=== PATIENT | female | born 1985 | race Two or more races ===

== ENCOUNTER 2021-08-20 14:27 | Inpatient (IN) | payer BC ==
[2021-08-20] MEDS ORDERED: Misoprostol 200 MCG Tab PO PRN (14:29)
[2021-08-20] MEDS ORDERED: Butorphanol 1 MG/ML SDV IVPUSH PRN (14:29)
[2021-08-20] MEDS ORDERED: Sodium Chloride 0.9% 10 ML Syringe FLUSH PRN (14:29)
[2021-08-20] MEDS ORDERED: Tranexamic Acid 1,000 MG in Sodium Chloride 0.9% 100 ML IV PRN (14:29)
[2021-08-20] MEDS ORDERED: Lidocaine 1% 50 ML MDV INJECT PRN (14:29)
[2021-08-20] MEDS ORDERED: Nalbuphine 10 MG/1 ML Vial IVPUSH PRN (14:29)
[2021-08-20] MEDS ORDERED: Sodium Chloride 0.9% 20 ML SDV IV PRN (14:29)
[2021-08-20] MEDS ORDERED: Carboprost Tromethamine 250 MCG/1 ML Amp IM PRN (14:29)
[2021-08-20] MEDS ORDERED: Sodium Chloride 0.9% 2.5 ML Syringe FLUSH PRN (14:29)
[2021-08-20] MEDS ORDERED: Water For Irrigation,Sterile 1,000 ML Container IRR PRN (14:29)
[2021-08-20] MEDS ORDERED: Methylergonovine 0.2 MG/1 ML Amp IM PRN (14:29)
[2021-08-20] MEDS ORDERED: Lactated Ringers 1,000 ML IV SCH (14:30)
[2021-08-20] MEDS ORDERED: Oxytocin/0.9 % Sodium Chloride 30 UNIT/500 ML BAG IV SCH (14:30)
[2021-08-20] MEDS ORDERED: Lidocaine 1% 50 ML MDV ONE (15:04)
[2021-08-20] MEDS ORDERED: Bisacodyl 10 MG Supp RECTAL PRN (16:04)
[2021-08-20] MEDS ORDERED: Acetaminophen 500 MG Tab PO PRN ×2 (16:04)
[2021-08-20] MEDS ORDERED: Benzocaine/Menthol 20%-0.5% Spray 78 GM Cannister TOP PRN (16:04)
[2021-08-20] MEDS ORDERED: Ibuprofen 400 MG Tab PO PRN (16:04)
[2021-08-20] MEDS ORDERED: oxyCODONE 5 MG Tab PO PRN (16:04)
[2021-08-20] MEDS ORDERED: Lanolin 100% Cream 7 GM Tube TOP PRN (16:04)
[2021-08-20] MEDS ORDERED: Witch Hazel Medicated Pads 40/Jar TOP PRN (16:04)
--- NOTE | 2021-08-20 16:10 | PCM.DEL ---
L & D Note - General Info Date of Service: 08/20/21 - Delivery Note Labor: Spontaneous Delivery Outcome: Livebirth Presentation: Right Occiput Anterior (KYLEE) Nuchal Cord: None Anesthesia Type: Local Anesthetic: Lidocaine (Xylocaine) 1% Plain Local Anesthetic Volume: 5cc Amniotic Fluid Description: Clear Episiotomy Type: None Laceration: 1st Degree Suture type: Vicryl Suture size: 3-0 Placenta: Intact, Spontaneous Cord: 3 Vessels Resuscitation Needed: No Provider: Kevin Rodriguez Score 1 min: 8 Score 5 min: 9 Second Stage Interventions: Reports: Pushing Effectively, Pushing, McRobert's Position - General Info Date of Service: 08/20/21 - Patient Data Weight - Most Recent: 199 lb Lab Results Last 24 Hours: Laboratory Results - last 24 hr 08/20/21 Range/Units 14:40 Blood Type A POSITIVE Antibody Screen NEGATIVE Med Orders - Current: Current Medications Sodium Chloride (Sodium Chloride 0.9% 10 Ml Syringe) 10 ml FLUSH ASDIRECTED PRN PRN Reason: Keep Vein Open Sodium Chloride (Sodium Chloride 0.9% 2.5 Ml Syringe) 2.5 ml FLUSH ASDIRECTED PRN PRN Reason: Keep Vein Open Sodium Chloride (Sodium Chloride 0.9% 20 Ml Sdv) 10 ml IV ASDIRECTED PRN PRN Reason: IV Use Discontinued Medications Butorphanol Tartrate (Butorphanol 1 Mg/Ml Sdv) 1 mg IVPUSH Q1H PRN PRN Reason: Pain (severe 7-10) Carboprost Tromethamine (Carboprost Tromethamine 250 Mcg/1 Ml Amp) 250 mcg IM ASDIRECTED PRN PRN Reason: Post Hemorrhage Oxytocin/Sodium Chloride (Oxytocin 30 Unit In Ns 0.9% 500 Ml Premix) 30 unit in 500 mls @ 500 mls/hr IV TITRATE [facility] Last Admin: 08/20/21 15:42 Dose: 500 mls/hr Documented by: Tranexamic Acid 1,000 mg/ (Sodium Chloride) 110 mls @ 660 mls/hr IV ONETIME PRN PRN Reason: Bleeding Lactated Ringer's (Ringers, Lactated) 1,000 mls @ 150 mls/hr IV ASDIRECTED [facility] Last Admin: 08/20/21 14:35 Dose: 150 mls/hr Documented by: Lidocaine HCl (Lidocaine 1% 50 Ml Mdv) 50 ml INJECT ONETIME PRN PRN Reason: Laceration repair Lidocaine HCl (Lidocaine 1% 50 Ml Mdv) Confirm Administered Dose 50 ml .ROUTE .[facility]-MED ONE Stop: 08/20/21 15:05 Methylergonovine Maleate (Methylergonovine 0.2 Mg/1 Ml Amp) 0.2 mg IM ASDIRECTED PRN PRN Reason: Post Hemorrhage Misoprostol (Misoprostol 200 Mcg Tab) 200 mcg PO ONETIME PRN PRN Reason: Post Hemorrhage Nalbuphine HCl (Nalbuphine 10 Mg/1 Ml Vial) 10 mg IVPUSH Q1H PRN PRN Reason: Pain (severe 7-10) Sterile Water (Water For Irrigation,Sterile 1,000 Ml Container) 1,000 ml IRR ASDIRECTED PRN PRN Reason: delivery - Problem List Review Problem List Initiated/Reviewed/Updated: Yes - My Orders Last 24 Hours: My Active Orders 08/20/21 CBC W/O DIFF,HEMOGRAM [HEME] Routine 08/20/21 14:29 Sodium Chloride 0.9% [Normal Saline] 10 ml IV ASDIRECTED PRN Sodium Chloride 0.9% [Saline Flush] 10 ml FLUSH ASDIRECTED PRN Sodium Chloride 0.9% [Saline Flush] 2.5 ml FLUSH ASDIRECTED PRN Peripheral IV Insertion Adult [OM.PC] Routine Resuscitation Status Routine 08/20/21 14:40 CORONAVIRUS COVID-19 LEONOR [MOLEC] Routine RPR (SYPHILIS SERO) W/ RFLX [REF] Routine 08/20/21 Dinner Regular Diet [DIET] 08/20/21 16:04 Patient Status [ADT] Routine May Shower [RC] ASDIRECTED Up ad Lynda [RC] ASDIRECTED Vital Signs [RC] PER UNIT ROUTINE Acetaminophen [Tylenol Extra Strength] 1,000 mg PO Q4H PRN Acetaminophen [Tylenol Extra Strength] 500 mg PO Q4H PRN Benzocaine/Menthol [Dermoplast Pain Relief 20%-0.5% [place]] 78 gm TOP ASDIRECTED PRN Docusate Sodium [Colace] 100 mg PO Q12H PRN Ibuprofen [Motrin] 400 mg PO Q4H PRN Ibuprofen [Motrin] 800 mg PO Q6H PRN Lanolin [Lansinoh HPA] See Dose Instructions TOP ASDIRECTED PRN bisacodyL [Dulcolax] 10 mg RECTAL ONETIME PRN oxyCODONE 5 mg PO Q2H PRN witch Venkat [Tucks] 1 pad TOP ASDIRECTED PRN Assess Lochia [WOMSER] Per Unit Routine Assess Uterine Involution [WOMSER] Per Unit Routine Breast Pump [WOMSER] Per Unit Routine Peripheral IV Discontinue [OM.PC] Routine 08/20/21 16:05 Ice Therapy [OM.PC] Per Unit Routine Perineal Care [OM.PC] Per Unit Routine Sitz Bath [OM.PC] Per Unit Routine 08/20/21 16:06 Cooling Warming Measures [RC] ASDIRECTED 08/21/21 05:11 HEMOGLOBIN/HEMATOCRIT,HH [HEME] Timed - Assessment Assessment:: 36yo PPD 0 s/p uncomplicated . - Plan Plan:: Routine care
[2021-08-20] MEDS: Docusate Sodium 100 MG Cap PO PRN (20:32)
[2021-08-20] MEDS: Ibuprofen 800 MG Tab PO PRN (20:32)
--- NOTE | 2021-08-21 01:38 | OR ---
SURGEON: Kevin Rodriguez MD DATE OF PROCEDURE: 08/20/2021 INDICATION FOR PROCEDURE: A 36-year-old, G1, P0, at 39 weeks and 6 days, presenting with spontaneous labor. Patient reports she had contractions starting from last night that became increasingly stronger earlier today. She denies any loss of fluid or vaginal bleeding. was complicated by advanced maternal age, which she was evaluated with serial growth ultrasounds, which was normal. She had weekly testing at term. She was GBS negative. After she presented to Labor and Delivery, she was found to be 8 cm dilated and +2 station. The patient declined an epidural for pain. The heart rate was category 1. She quickly became fully dilated within the next 30 minutes with the urge to push. PREOPERATIVE DIAGNOSES: 1. Gardner intrauterine at 39 weeks and 6 days. 2. Active labor. POSTOPERATIVE DIAGNOSES: 1. Gardner intrauterine at 39 weeks and 6 days. 2. Active labor. PROCEDURE PERFORMED: Normal spontaneous vaginal delivery, repair of first-degree laceration. ANESTHESIA: Local anesthesia. FINDINGS: Viable male , score of 8 and 9, weight of 6 pounds 13 ounces. ESTIMATED BLOOD LOSS: 200 mL. DESCRIPTION OF PROCEDURE: The patient pushed with contractions for about 30 minutes with good descent. head delivered in occiput anterior position over intact perineum, restituted ROT. Anterior shoulder was delivered easily, posterior shoulder and remaining body. No nuchal cord was noted. The baby was placed on maternal chest and evaluated by awaiting nursery staff. The baby was pink, crying, and moving all extremities immediately after delivery. The umbilical cord was clamped and cut after 3 minutes and no longer pulsating. Umbilical cord gases were obtained and the placenta was removed with gentle traction on the umbilical cord and fundal massage. The perineum was examined, and she had a first-degree laceration that was bleeding. 5 mL of 1% lidocaine with epi was injected for local anesthesia. 3-0 Vicryl was used to repair the laceration in normal fashion. Hemostasis was confirmed. Fundus was massaged, which was firm and below the umbilicus, and the bleeding was light. The patient tolerated the procedure well, was given instructions. MAGGIE / ALISA /[id number] EITAN
[2021-08-21] MEDS: Ibuprofen 800 MG Tab PO PRN ×2 (08:25→20:15)
--- NOTE | 2021-08-21 09:21 | PCM.PNPP ---
- General Info Date of Service: 08/21/21 Subjective Update: Patient without complaints. Bottle feeding going well. Pain and lochia minimal. Functional Status: Reports: Pain Controlled, Tolerating Diet, Ambulating, Urinating - Review of Systems General: Reports: No Symptoms HEENT: Reports: No Symptoms Pulmonary: Reports: No Symptoms Cardiovascular: Reports: No Symptoms Gastrointestinal: Reports: No Symptoms Genitourinary: Reports: No Symptoms Musculoskeletal: Reports: No Symptoms Skin: Reports: No Symptoms Neurological: Reports: No Symptoms Psychiatric: Reports: No Symptoms - Patient Data Vital Signs - Most Recent: Last Vital Signs Temp 36.3 C 08/21/21 08:00 Pulse 78 08/21/21 08:00 Resp 18 08/21/21 08:00 BP 119/65 08/21/21 08:00 Pulse Ox 97 08/21/21 08:00 Weight - Most Recent: 90.265 kg Lab Results - Last 24 Hours: Laboratory Results - last 24 hr 08/20/21 08/20/21 08/20/21 Range/Units 14:40 14:40 18:36 WBC 24.92 H (4.0-11.0) K/uL RBC 3.96 L (4.30-5.90) M/uL Hgb 12.2 (12.0-16.0) g/dL Hct 35.4 L (36.0-46.0) % MCV 89.4 (80.0-98.0) fL MCH 30.8 (27.0-32.0) pg MCHC 34.5 (31.0-37.0) g/dL RDW Std Deviation 44.6 (28.0-62.0) fl RDW Coeff of Alejandro 14 (11.0-15.0) % Plt Count 266 (150-400) K/uL MPV 11.60 (7.40-12.00) fL Nucleated RBC % 0.0 /100WBC Nucleated RBCs # 0 K/uL SARS-CoV-2 RNA (LEONOR) NEGATIVE (NEGATIVE) Blood Type A POSITIVE Antibody Screen NEGATIVE 08/21/21 Range/Units 05:45 WBC (4.0-11.0) K/uL RBC (4.30-5.90) M/uL Hgb 11.3 L (12.0-16.0) g/dL Hct 33.8 L (36.0-46.0) % MCV (80.0-98.0) fL MCH (27.0-32.0) pg MCHC (31.0-37.0) g/dL RDW Std Deviation (28.0-62.0) fl RDW Coeff of Alejandro (11.0-15.0) % Plt Count (150-400) K/uL MPV (7.40-12.00) fL Nucleated RBC % /100WBC Nucleated RBCs # K/uL SARS-CoV-2 RNA (LEONOR) (NEGATIVE) Blood Type Antibody Screen Med Orders - Current: Current Medications Acetaminophen (Acetaminophen 500 Mg Tab) 500 mg PO Q4H PRN PRN Reason: Pain (mild 1-3) Acetaminophen (Acetaminophen 500 Mg Tab) 1,000 mg PO Q4H PRN PRN Reason: Pain (mild 1-3) Benzocaine/Menthol (Benzocaine/Menthol 20%-0.5% [place] 78 Gm Cannister) 78 gm TOP ASDIRECTED PRN PRN Reason: Perineal Comfort Measure Last Admin: 08/20/21 20:33 Dose: 1 can Documented by: Bisacodyl (Bisacodyl 10 Mg Supp) 10 mg RECTAL ONETIME PRN PRN Reason: Constipation Docusate Sodium (Docusate Sodium 100 Mg Cap) 100 mg PO Q12H PRN PRN Reason: Constipation Last Admin: 08/20/21 20:32 Dose: 100 mg Documented by: Emollient Ointment (Lanolin 100% Cream 7 Gm Tube) 0 gm TOP ASDIRECTED PRN PRN Reason: Sore Nipples Ibuprofen (Ibuprofen 400 Mg Tab) 400 mg PO Q4H PRN PRN Reason: Pain (mild 1-3) Ibuprofen (Ibuprofen 800 Mg Tab) 800 mg PO Q6H PRN PRN Reason: Cramping Last Admin: 08/21/21 08:25 Dose: 800 mg Documented by: Oxycodone HCl (Oxycodone 5 Mg Tab) 5 mg PO Q2H PRN PRN Reason: Pain (severe 7-10) Sodium Chloride (Sodium Chloride 0.9% 10 Ml Syringe) 10 ml FLUSH ASDIRECTED PRN PRN Reason: Keep Vein Open Sodium Chloride (Sodium Chloride 0.9% 2.5 Ml Syringe) 2.5 ml FLUSH ASDIRECTED PRN PRN Reason: Keep Vein Open Sodium Chloride (Sodium Chloride 0.9% 20 Ml Sdv) 10 ml IV ASDIRECTED PRN PRN Reason: IV Use Witch Leana (Witch Leana Medicated Pads 40/Jar) 1 pad TOP ASDIRECTED PRN PRN Reason: comfort care Last Admin: 08/20/21 20:33 Dose: 1 tub Documented by: Discontinued Medications Butorphanol Tartrate (Butorphanol 1 Mg/Ml Sdv) 1 mg IVPUSH Q1H PRN PRN Reason: Pain (severe 7-10) Carboprost Tromethamine (Carboprost Tromethamine 250 Mcg/1 Ml Amp) 250 mcg IM ASDIRECTED PRN PRN Reason: Post Hemorrhage Oxytocin/Sodium Chloride (Oxytocin 30 Unit In Ns 0.9% 500 Ml Premix) 30 unit in 500 mls @ 500 mls/hr IV TITRATE [facility] Last Admin: 08/20/21 15:42 Dose: 500 mls/hr Documented by: Tranexamic Acid 1,000 mg/ (Sodium Chloride) 110 mls @ 660 mls/hr IV ONETIME PRN PRN Reason: Bleeding Lactated Ringer's (Ringers, Lactated) 1,000 mls @ 150 mls/hr IV ASDIRECTED [facility] Last Admin: 08/20/21 14:35 Dose: 150 mls/hr Documented by: Lidocaine HCl (Lidocaine 1% 50 Ml Mdv) 50 ml INJECT ONETIME PRN PRN Reason: Laceration repair Lidocaine HCl (Lidocaine 1% 50 Ml Mdv) Confirm Administered Dose 50 ml .ROUTE .[facility]-MED ONE Stop: 08/20/21 15:05 Methylergonovine Maleate (Methylergonovine 0.2 Mg/1 Ml Amp) 0.2 mg IM ASDIRECTED PRN PRN Reason: Post Hemorrhage Misoprostol (Misoprostol 200 Mcg Tab) 200 mcg PO ONETIME PRN PRN Reason: Post Hemorrhage Nalbuphine HCl (Nalbuphine 10 Mg/1 Ml Vial) 10 mg IVPUSH Q1H PRN PRN Reason: Pain (severe 7-10) Sterile Water (Water For Irrigation,Sterile 1,000 Ml Container) 1,000 ml IRR ASDIRECTED PRN PRN Reason: delivery - Interaction Disposition, : in Room with Family Feeding: Bottle Fed - Recovery Exam Fundal Tone: Firm Fundal Level: 1 Fingerbreadths Below Umbilicus Fundal Placement: Midline Lochia Amount: Scant, Small Lochia Color: Rubra/Red Other Perinuem Description: 1st degree laceration Bladder Status: Voiding Urinary Elimination: Voided - Exam General: Alert, Oriented Neck: Supple Lungs: Normal Respiratory Effort GI/Abdominal Exam: Soft, Non-Tender, No Distention Extremities: Non-Tender, No Pedal Edema Skin: Warm, Dry, Intact Neurological: No New Focal Deficit Psy/Mental Status: Alert, Normal Affect, Normal Mood - Problem List & Annotations (1) Vaginal delivery SNOMED Code(s): 404154219 Code(s): O80 - ENCOUNTER FOR FULL-TERM UNCOMPLICATED DELIVERY Status: Acute Current Visit: Yes - Problem List Review Problem List Initiated/Reviewed/Updated: Yes - My Orders Last 24 Hours: My Active Orders 08/21/21 09:19 Ready for Discharge [RC] PER UNIT ROUTINE - Assessment Assessment:: 36yo PPD 1 s/p uncomplicated . - Plan Plan:: Continue routine care. Plan for discharge home today if infant cleared by Director Card. Reviewed discharge instructions/precautions. All questions answered. Rh positive, GBS negative.
[2021-08-21] MEDS: Docusate Sodium 100 MG Cap PO PRN (20:15)
--- NOTE | 2021-08-22 07:17 | PCM.PNPP ---
- General Info Date of Service: 08/22/21 Subjective Update: Patient without complaints this morning. Bottle feeding going well. Pain and lochia minimal. Functional Status: Reports: Pain Controlled, Tolerating Diet, Ambulating, Urinating - Review of Systems General: Reports: No Symptoms HEENT: Reports: No Symptoms Pulmonary: Reports: No Symptoms Cardiovascular: Reports: No Symptoms Gastrointestinal: Reports: No Symptoms Genitourinary: Reports: No Symptoms Musculoskeletal: Reports: No Symptoms Skin: Reports: No Symptoms Neurological: Reports: No Symptoms Psychiatric: Reports: No Symptoms - Patient Data Vital Signs - Most Recent: Last Vital Signs Temp 36.1 C 08/21/21 20:10 Pulse 86 08/21/21 20:10 Resp 17 08/21/21 20:10 BP 131/73 08/21/21 20:10 Pulse Ox 97 08/21/21 20:10 Weight - Most Recent: 90.265 kg Med Orders - Current: Current Medications Acetaminophen (Acetaminophen 500 Mg Tab) 500 mg PO Q4H PRN PRN Reason: Pain (mild 1-3) Acetaminophen (Acetaminophen 500 Mg Tab) 1,000 mg PO Q4H PRN PRN Reason: Pain (mild 1-3) Benzocaine/Menthol (Benzocaine/Menthol 20%-0.5% [place] 78 Gm Cannister) 78 gm TOP ASDIRECTED PRN PRN Reason: Perineal Comfort Measure Last Admin: 08/20/21 20:33 Dose: 1 can Documented by: Bisacodyl (Bisacodyl 10 Mg Supp) 10 mg RECTAL ONETIME PRN PRN Reason: Constipation Docusate Sodium (Docusate Sodium 100 Mg Cap) 100 mg PO Q12H PRN PRN Reason: Constipation Last Admin: 08/21/21 20:15 Dose: 100 mg Documented by: Emollient Ointment (Lanolin 100% Cream 7 Gm Tube) 0 gm TOP ASDIRECTED PRN PRN Reason: Sore Nipples Ibuprofen (Ibuprofen 400 Mg Tab) 400 mg PO Q4H PRN PRN Reason: Pain (mild 1-3) Ibuprofen (Ibuprofen 800 Mg Tab) 800 mg PO Q6H PRN PRN Reason: Cramping Last Admin: 08/21/21 20:15 Dose: 800 mg Documented by: Oxycodone HCl (Oxycodone 5 Mg Tab) 5 mg PO Q2H PRN PRN Reason: Pain (severe 7-10) Sodium Chloride (Sodium Chloride 0.9% 10 Ml Syringe) 10 ml FLUSH ASDIRECTED PRN PRN Reason: Keep Vein Open Sodium Chloride (Sodium Chloride 0.9% 2.5 Ml Syringe) 2.5 ml FLUSH ASDIRECTED PRN PRN Reason: Keep Vein Open Sodium Chloride (Sodium Chloride 0.9% 20 Ml Sdv) 10 ml IV ASDIRECTED PRN PRN Reason: IV Use Witch Leana (Witch Leana Medicated Pads 40/Jar) 1 pad TOP ASDIRECTED PRN PRN Reason: comfort care Last Admin: 08/20/21 20:33 Dose: 1 tub Documented by: Discontinued Medications Butorphanol Tartrate (Butorphanol 1 Mg/Ml Sdv) 1 mg IVPUSH Q1H PRN PRN Reason: Pain (severe 7-10) Carboprost Tromethamine (Carboprost Tromethamine 250 Mcg/1 Ml Amp) 250 mcg IM ASDIRECTED PRN PRN Reason: Post Hemorrhage Oxytocin/Sodium Chloride (Oxytocin 30 Unit In Ns 0.9% 500 Ml Premix) 30 unit in 500 mls @ 500 mls/hr IV TITRATE [facility] Last Admin: 08/20/21 15:42 Dose: 500 mls/hr Documented by: Tranexamic Acid 1,000 mg/ (Sodium Chloride) 110 mls @ 660 mls/hr IV ONETIME PRN PRN Reason: Bleeding Lactated Ringer's (Ringers, Lactated) 1,000 mls @ 150 mls/hr IV ASDIRECTED [facility] Last Admin: 08/20/21 14:35 Dose: 150 mls/hr Documented by: Lidocaine HCl (Lidocaine 1% 50 Ml Mdv) 50 ml INJECT ONETIME PRN PRN Reason: Laceration repair Lidocaine HCl (Lidocaine 1% 50 Ml Mdv) Confirm Administered Dose 50 ml .ROUTE .[facility]-MED ONE Stop: 08/20/21 15:05 Methylergonovine Maleate (Methylergonovine 0.2 Mg/1 Ml Amp) 0.2 mg IM ASDIRECTED PRN PRN Reason: Post Hemorrhage Misoprostol (Misoprostol 200 Mcg Tab) 200 mcg PO ONETIME PRN PRN Reason: Post Hemorrhage Nalbuphine HCl (Nalbuphine 10 Mg/1 Ml Vial) 10 mg IVPUSH Q1H PRN PRN Reason: Pain (severe 7-10) Sterile Water (Water For Irrigation,Sterile 1,000 Ml Container) 1,000 ml IRR ASDIRECTED PRN PRN Reason: delivery - Interaction Disposition, : in Room with Family Feeding: Bottle Fed Support Person: - Recovery Exam Fundal Tone: Firm Fundal Level: 1 Fingerbreadths Below Umbilicus Fundal Placement: Midline Lochia Amount: Scant Lochia Color: Rubra/Red Other Perinuem Description: 1st degree laceration Bladder Status: Voiding Urinary Elimination: Voided - Exam General: Alert, Oriented Neck: Supple Lungs: Normal Respiratory Effort GI/Abdominal Exam: Soft, Non-Tender, No Distention Extremities: Non-Tender, No Pedal Edema Skin: Warm, Dry, Intact Neurological: No New Focal Deficit Psy/Mental Status: Alert, Normal Affect, Normal Mood - Problem List & Annotations (1) Vaginal delivery SNOMED Code(s): 525048374 Code(s): O80 - ENCOUNTER FOR FULL-TERM UNCOMPLICATED DELIVERY Status: Acute Current Visit: Yes - Problem List Review Problem List Initiated/Reviewed/Updated: Yes - My Orders Last 24 Hours: My Active Orders 08/22/21 07:13 Ready for Discharge [RC] PER UNIT ROUTINE - Assessment Assessment:: 36yo PPD#2 s/p uncomplicated . - Plan Plan:: Plan for discharge home today. Reviewed discharge instructions/precautions. All questions answered. Rh positive, GBS negative.
== END 2021-08-22 11:59 | disposition home or self-care (01) | DRG 560 ==
LOC: MW.OBCHECK 14:27 → MW.OB 15:18 → OBSVTOIN 15:38 → MW.OB 21:10
PROVIDERS: ADMIT Obstetrics & Gynecology; ATTEND Obstetrics & Gynecology
PROC: 10E0XZZ Delivery of Products of Conception, External Approach (ICD-10-PCS; principal; 2021-08-20)
PROC: 0HQ9XZZ Repair Perineum Skin, External Approach (ICD-10-PCS; 2021-08-20)
DX: O70.0 First degree perineal laceration during delivery (principal); Z37.0 Single live birth; Z3A.39 39 weeks gestation of pregnancy; Z20.822 Contact with and (suspected) exposure to COVID-19
CPT/HCPCS: 36415; 59025; 59409; 85014; 85018; 85027; 86592; 86850; 86900; 86901; A9270-GY; J2001; J2590; J7120; U0002